=== PATIENT | female | born 1985 | race Caucasian/White ===

== ENCOUNTER 2017-11-26 11:56 | Emergency (ER) | payer OTHER, MEDICAID ==
[~2017-11-26] VITALS: Ht 160 cm; Wt 122.5 kg
[~2017-11-26 11:56] MED LIST: ALBUTEROL INH; BENADRYL25 MG; FAMOTIDINE; FLEXERIL PO; HYDROCODONE-APA1 TA1 PO; IBUPROFEN 800800 M1 PO; KEFLEX250 MG PO; MACROBID 100 M100 M1 PO; NAPROSYN500 MG PO; NOHOMEMEDICATIONS; NORCO 5-325 TA1 EACH PO; PREDNISONE 5 MG5 M1; PRENATAL COMPL1 EACH PO; TRAMADOL 50 MG50 MG PO; VICODIN; ZOFRAN ODT4 MG PO
[2017-11-26 12:21] LABS: URINE BILIRUBIN NEGATIVE (Negative); URINE BLOOD NEGATIVE (Negative); URINE CLARITY CLEAR; URINE COLOR YELLOW; URINE GLUCOSE-RANDOM NEGATIVE (Negative); URINE KETONES NEGATIVE (Negative); URINE LEUKOCYTES-REFLEX NEGATIVE (Negative); URINE NITRITE-REFLEX NEGATIVE (Negative); URINE PROTEIN TRACE (Negative); URINE SPECIFIC GRAVITY 1.025 (1.005-1.030); URINE UROBILINOGEN 0.2 E.U./dl (0.2-1.0)
[2017-11-26 12:26] LABS: ABSOLUTE BASOPHILS 0.1 thou/uL (0.0-0.2); ABSOLUTE EOSINOPHILS 0.1 thou/uL (0.0-0.7); ABSOLUTE LYMPHOCYTES 2.9 thou/uL (0.8-5.3); ABSOLUTE MONOCYTES 0.4 thou/uL (0.0-1.2); ABSOLUTE NEUTROPHILS 4.9 thou/uL (1.6-8.1); BASOPHILS 0.9 %; HEMATOCRIT 43.3 % (37.0-47.0); HEMOGLOBIN 14.3 gm/dL (12.0-15.0); LYMPHOCYTES 34.8 %; MCH 28.4 pg (26.0-34.0); MCHC 33.1 g/dL (28.0-37.0); MONOCYTES 4.5 %; MPV 7.4 fl. (7.2-11.1); NUCLEATED RBCS 0 /100WBC; PLATELET COUNT* 324 thou/uL (150-400); POLYS 58.8 %; RBC 5.04 mil/uL (4.20-5.00); RDW-CV 13.9 % (10.5-14.5); WBC 8.4 thou/uL (4.0-11.0)
[2017-11-26 12:30] LABS: CALCIUM 9.9 mg/dL (8.5-10.1); CREATININE 0.7 mg/dL (0.6-1.3); POTASSIUM 4.2 mmol/L (3.5-5.1)
[2017-11-26 12:35] LABS: ALBUMIN 3.9 g/dL (3.4-5.0); TOTAL BILIRUBIN 0.7 mg/dL (<0.1-1.0); TOTAL PROTEIN 8.1 g/dL (6.4-8.2)
[2017-11-26] MEDS ORDERED: HYDROCODONE-AP1 EAC6 PO (13:00)
[2017-11-26] MEDS ORDERED: PEPCID20 MG PO (13:00)
[2017-11-26] MEDS ORDERED: PHENERGAN 25 MG25 M1 PO (13:00)
[2017-11-26 13:16] VITALS: BP 146/100
--- NOTE | 2017-11-26 16:26 | EKG ---
[place] [address] ELECTROCARDIOGRAM REPORT Name: SAMUEL BRIDGES Mary Room: [facility]#: [id number] Admission: 11/26/17 Attend Phys: Discharge: 11/26/17 Date of : 83 Report #: [id number] THIS REPORT FOR: //name// 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 : 1985 Requested By: Maria Del Carmen Mcgrath Order Number: [id number] MD: Usman Pizarro Measurements Intervals [place] Rate: 85 P: 33 CO: 171 QRS: 20 QRSD: 89 T: 6 QT: 363 QTc: 432 Interpretive Statements Sinus rhythm Abnormal inferior Q waves Compared to ECG 05/23/2009 21:56:13 no change Electronically Signed On 11-26-2017 16:26:01 [employer] by Usman Pizarro [email or web address] <ELECTRONICALLY SIGNED> By: Usman Pizarro MD, [facility] 11/26/17 1626 1240 1240 Usman Pizarro MD, FACC /EPI
== END 2017-11-26 13:16 | disposition home or self-care (01) ==
LOC: M.ERS 11:56
PROVIDERS: Physician Assistant
DX: R10.11 Right upper quadrant pain (principal); J45.909 Unspecified asthma, uncomplicated; E78.5 Hyperlipidemia, unspecified; Z88.2 Allergy status to sulfonamides; Z88.5 Allergy status to narcotic agent

== ENCOUNTER 2018-01-28 19:41 | Emergency (ER) | payer OTHER, MEDICAID ==
[~2018-01-28] VITALS: Ht 160 cm; Wt 117.9 kg
[~2018-01-28 19:41] MED LIST changes: +HYDROCODONE-AP1 EAC6 PO; +PEPCID20 MG PO; +PHENERGAN 25 MG25 M1 PO
[2018-01-28] MEDS ORDERED: PREDNISONE 20 M20 MG PO (19:59)
[2018-01-28 20:15] VITALS: BP 149/101
== END 2018-01-28 20:15 | disposition home or self-care (01) ==
LOC: M.ERS 19:41
DX: M77.9 Enthesopathy, unspecified (principal); J45.909 Unspecified asthma, uncomplicated; E78.5 Hyperlipidemia, unspecified; Z88.5 Allergy status to narcotic agent; Z88.2 Allergy status to sulfonamides

== ENCOUNTER 2019-07-07 22:15 | Emergency (ER) | payer OTHER ==
[~2019-07-07] VITALS: Ht 160 cm; Wt 104.3 kg
[~2019-07-07 22:15] MED LIST changes: +PREDNISONE 20 M20 MG PO
[2019-07-07 22:31] LABS: URINE BILIRUBIN NEGATIVE (Negative); URINE BLOOD NEGATIVE (Negative); URINE CLARITY CLEAR; URINE COLOR YELLOW; URINE GLUCOSE-RANDOM NEGATIVE (Negative); URINE KETONES NEGATIVE (Negative); URINE LEUKOCYTES-REFLEX NEGATIVE (Negative); URINE NITRITE-REFLEX NEGATIVE (Negative); URINE PROTEIN NEGATIVE (Negative); URINE SPECIFIC GRAVITY >= 1.030 (1.005-1.030); URINE UROBILINOGEN 0.2 E.U./dl (0.2-1.0)
[2019-07-07 23:52] LABS: ALBUMIN 3.8 g/dL (3.4-5.0); TOTAL BILIRUBIN 0.5 mg/dL (<0.1-1.0); TOTAL PROTEIN 7.6 g/dL (6.4-8.2)
[2019-07-08 00:03] LABS: ABSOLUTE BASOPHILS 0.1 thou/uL (0.0-0.2); ABSOLUTE EOSINOPHILS 0.1 thou/uL (0.0-0.7); ABSOLUTE LYMPHOCYTES 2.4 thou/uL (0.8-5.3); ABSOLUTE MONOCYTES 0.7 thou/uL (0.0-1.2); ABSOLUTE NEUTROPHILS 6.1 thou/uL (1.6-8.1); BASOPHILS 1.3 %; EOSINOPHILS 1.1 %; HEMATOCRIT 38.9 % (37.0-47.0); HEMOGLOBIN 12.9 gm/dL (12.0-15.0); LYMPHOCYTES 25.7 %; MCH 29.1 pg (26.0-34.0); MCHC 33.3 g/dL (28.0-37.0); MCV 87.2 fL (80.0-100.0); MONOCYTES 7.4 %; MPV 7.4 fl. (7.2-11.1); NUCLEATED RBCS 0 /100WBC; PLATELET COUNT* 292 thou/uL (150-400); POLYS 64.5 %; RBC 4.45 mil/uL (4.20-5.00); RDW-CV 13.2 % (10.5-14.5); WBC 9.4 thou/uL (4.0-11.0)
[2019-07-08] MEDS ORDERED: NORCO 5-325 TA1 EAC1 PO (00:21)
[2019-07-08] MEDS ORDERED: PHENERGAN 25 MG25 M1 PO (00:21)
[2019-07-08 00:54] VITALS: BP 133/82
== END 2019-07-08 00:55 | disposition home or self-care (01) ==
LOC: M.ERS 22:15
PROVIDERS: Nurse Practitioner Psychiatric/Mental Health
DX: K85.90 Acute pancreatitis without necrosis or infection, unspecified (principal); E78.5 Hyperlipidemia, unspecified; J45.909 Unspecified asthma, uncomplicated; Z98.890 Other specified postprocedural states; Z88.2 Allergy status to sulfonamides; Z88.5 Allergy status to narcotic agent

== ENCOUNTER 2021-05-17 21:24 | Emergency (ER) | payer OTHER ==
[~2021-05-17] VITALS: Ht 160 cm; Wt 107.0 kg
[~2021-05-17 21:24] MED LIST changes: +NORCO 5-325 TA1 EAC1 PO
[2021-05-17] MEDS ORDERED: CEPHALEXIN500 MG PO (22:09)
[2021-05-17 22:51] VITALS: BP 150/96
== END 2021-05-17 22:52 | disposition home or self-care (01) ==
LOC: M.ERS 21:24
DX: S01.81XA Laceration without foreign body of other part of head, initial encounter (principal); E78.5 Hyperlipidemia, unspecified; J45.909 Unspecified asthma, uncomplicated; Z88.5 Allergy status to narcotic agent; Z88.2 Allergy status to sulfonamides; W22.8XXA Striking against or struck by other objects, initial encounter; Y93.89 Activity, other specified; Y92.89 Other specified places as the place of occurrence of the external cause; Y99.9 Unspecified external cause status